=== PATIENT | female | born 1945 | race Caucasian/White ===

== ENCOUNTER 2017-01-21 16:00 | Emergency (ER) | payer MEDICARE ==
--- NOTE | ~2017-01-21 | CT52 ---
[facility] A Service of [facility] & [facility] RADIOLOGY TEXT RESULTS PATIENT: GABRIEL COHN LOCATION: [facility] : 49 UNIT #: [id number] AGE: [address]: Deshawn Celis MD SEX: F ORDER DR: [id number] [facility] [address] [place], [place] [address] [id number] E MR#: [id number] Acc #: [id number] NAME: GABRIEL COHN. : 1945 SEX: F STUDY DATE/TIME: 01/21/2017 15:03 UNIT: [facility] ROOM: STUDY DESCRIPTION: CT Cervical Spine Wo Cont Attending Physician: Deshawn Celis M.D. Ordering Physician: Manuel Hoskins M.D. Primary Care Physician: Rocky Mendiola M.D. MEDICAL IMAGING REPORT This report is preliminary unless electronic signature is present EXAM Cervical spine CT, 01/21/2017 HISTORY Patient fell yesterday. Neck and mid back pain with increased confusion today. TECHNIQUE Thin section axial imaging was obtained from the skull base to the upper thoracic spine and evaluated at bone and soft tissue windows with multiplanar reformats. This CT exam was performed with one or more of the following radiation dose reduction techniques: automatic exposure control, adjustment of mA and/or kV according to patient size, and iterative reconstruction. FINDINGS Alignment is satisfactory. There are mild degenerative changes at the upper 3 cervical discs with small osteophytes and mild disc space narrowing. At C5-6 there are large Schmorl nodes at the upper and lower endplates across the disc with an anterior osteophyte and sclerotic changes in the endplates with moderate disc space narrowing. There is also moderately severe disc narrowing at C6-7 and C7-T1. There is a prominent posterior disc osteophyte complex toward the left at C7-T1. This narrows the left side of the canal and the entrance to the left foramen. No fractures are seen and no destructive bone lesions are noted. No paraspinous masses are seen. IMPRESSION Multilevel degenerative disc disease as described above. Prominent posterior osteophyte to the left at C6-7 with moderate left-sided canal and foraminal narrowing. No acute bony abnormalities are seen. No STS. [facility] A Service of [facility] & [facility] RADIOLOGY TEXT RESULTS PATIENT: GABRIEL COHN [id number] [birth year] UNIT #: [id number] AGE: [address]: Deshawn Celis MD SEX: F ORDER DR: evidence of a fracture. Dictated by... Simon Vallejo M.D. THIS IS AN ELECTRONICALLY VERIFIED REPORT Simon Vallejo M.D. at 01/22/2017 3:41 PM KAVEH/jean TD: 01/22/2017 00:35 JOB #: [id number] MEDICAL IMAGING REPORT COPY
--- NOTE | ~2017-01-21 | CT71 ---
[facility] A Service [facility] RADIOLOGY TEXT RESULTS PATIENT: GABRIEL COHN LOCATION: [facility] : 47 UNIT #: [id number] AGE: [address]: Deshawn Celis MD SEX: F ORDER DR: [id number] [facility] [address] [place], [place] [address] [id number] E MR#: [id number] Acc #: [id number] NAME: GABRIEL COHN. : 1945 SEX: F STUDY DATE/TIME: 01/21/2017 15:03 UNIT: [facility] ROOM: STUDY DESCRIPTION: CT Head Wo Contrast Attending Physician: Deshawn Celis M.D. Ordering Physician: Manuel Hoskins M.D. Primary Care Physician: Rocky Mendiola M.D. MEDICAL IMAGING REPORT This report is preliminary unless electronic signature is present EXAM Head CT without contrast, 01/21/2017 HISTORY Patient fell in 01/20/2017 with neck pain and increasing confusion today. TECHNIQUE Axial images were obtained without contrast. CT dose reduction techniques were employed. This CT exam was performed with one or more of the following radiation dose reduction techniques: automatic exposure control, adjustment of mA and/or kV according to patient size, and iterative reconstruction. FINDINGS Generalized atrophy is seen and there are moderate chronic ischemic changes noted around the ventricles. There is no evidence of mass, hemorrhage or edema. No midline shift is seen. Extraaxial structures are unremarkable. Noted incidentally is mild mucosal thickening in the left maxillary sinus. 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 No acute findings. Dictated by... Simon Vallejo M.D. THIS IS AN ELECTRONICALLY VERIFIED REPORT Simon Vallejo M.D. at 01/22/2017 3:41 PM RLF/jean [facility] A Service [facility] RADIOLOGY TEXT RESULTS PATIENT: GABRIEL COHN LOCATION: [facility] : 49 UNIT #: [id number] AGE: [address]: Deshawn Celis MD SEX: F ORDER DR: TD: 01/22/2017 00:16 JOB #: [id number] MEDICAL IMAGING REPORT COPY
--- NOTE | ~2017-01-21 | EKG ---
PATIENT: GABRIEL COHN UNIT #: [id number] Ventricular Rate: 87 BPM Atrial Rate: 87 BPM P-R Interval: 198 ms QRS Duration: 66 ms Q-T Interval: 380 ms QTC Calculation(Bezet): 457 ms P [place]: 55 degrees Calculated R [place]: 43 degrees Calculated T [place]: 69 degrees Diagnosis Line: Normal sinus rhythm Diagnosis Line: Septal infarct , age undetermined Diagnosis Line: Abnormal ECG Diagnosis Line: When compared with ECG of 02-AUG-2016 14:53, Diagnosis Line: Premature ventricular complexes are no longer Diagnosis Line: Present Diagnosis Line: Septal infarct is now Present Diagnosis Line: Confirmed by NEMO COBOS MD ([id number]) on Diagnosis Line: 01/22/2017 11:24:43 AM INTERPRETING MD: CHANDRIKA BRANDT
--- NOTE | ~2017-01-21 | CR72 ---
[facility] A Service of [facility] & [facility] RADIOLOGY TEXT RESULTS PATIENT: GABRIEL COHN LOCATION: [facility] : 49 UNIT #: [id number] AGE: [address]: Deshawn Celis MD SEX: F ORDER DR: [id number] [facility] [address] [place], [place] [address] [id number] E MR#: [id number] Acc #: [id number] NAME: GABRIEL COHN. : 1945 SEX: F STUDY DATE/TIME: 01/21/2017 15:17 UNIT: [facility] ROOM: STUDY DESCRIPTION: CR Chest Single View Portable Attending Physician: Deshawn Celis M.D. Ordering Physician: Ed David Hoskins M.D. Primary Care Physician: Rocky Mendiola M.D. MEDICAL IMAGING REPORT This report is preliminary unless electronic signature is present EXAM Portable chest, 01/21/2017 INDICATION 71-year-old female with shortness of breath for 1 day. Compared with 08/02/2016. FINDINGS The lungs are well expanded and clear. Heart size normal. Visualized osseous structures are unremarkable. IMPRESSION No active disease. Dictated by... Alfredo Merlos M.D. THIS IS AN ELECTRONICALLY VERIFIED REPORT Alfredo Merlos M.D. at 01/23/2017 7:32 AM JIMMY/jean TD: 01/22/2017 03:42 JOB #: [id number] MEDICAL IMAGING REPORT COPY
[2017-01-21 15:45] LABS: BASOPHIL% 0.3 % (0-2.5); EOSINOPHIL# 0.1 X10e3 (0-0.7); EOSINOPHIL% 0.7 % (0.0-7.0); HEMATOCRIT 38.3 % (35.0-45.0); HEMOGLOBIN 12.6 gm/dL (12.0-16.0); LYMPHOCYTE# 0.9 X10e3 (1.0-3.5); LYMPHOCYTE% 7.5 % (17.0-45.0); MEAN CELL VOLUME 83.6 FL (83-96); MEAN CORPUSCULAR HEMOGLOBIN 27.6 PG (28-34); MEAN PLATELET VOLUME 7.8 FL (6.5-11.5); MONOCYTE# 0.8 X10e3 (0-1.0); MONOCYTE% 6.8 % (3.0-12.0); NEUTROPHIL% 84.7 % (40-75); PLATELET COUNT 200 X10e3 (140-420); RED BLOOD COUNT 4.57 X10e (3.90-5.30); RED CELL DISTRIBUTION WIDTH 13.8 % (11.0-15.5); WHITE BLOOD COUNT 11.9 X10e3 (4.0-10.5)
[2017-01-21 15:46] LABS: DIFF IND NO
[2017-01-21 16:00] LABS: INR 1.1; PARTIAL THROMBOPLASTIN TIME 27.5 SECONDS (23.5-31.3); PROTHROMBIN TIME (PATIENT) 12.1 SECONDS (9.6-11.5)
[~2017-01-21 16:00] MED LIST: ACETAMINOPHEN PO; ADVAIR 250-501 EAC1 IH; ALBUTEROL MININEB NEB; ALBUTEROL0.63 MG/3 INH; ALBUTEROL17 GM; ALBUTEROL17 GM INH; ALPRAZOLAM; ALPRAZOLAM PO; AMBIEN PO; ARICEPT PO; ARICEPT5 MG PO; ASPIRIN DR PO; ASPIRIN EC81 M1 PO; ASPIRIN PO; ASPIRIN81 M2 PO; COMBIVENT MININEB INH; COMBIVENT RESPIMAT INH; COMBIVENT U/D3 M2 INH; COUMADIN PO; COUMADIN1 MG PO; COUMADIN2.5 MG PO; COUMADIN5 MG PO; DITROPAN XL PO; DOCU SOFT100 M1 PO; DUONEB 2.5-0.5 M3 ML NEB; ENABLEX15 MG PO; FUROSEMIDE40 MG PO; HUMALOG KWIKPEN; HUMALOG100 U/M2; HYDROCODON-ACE1 EAC7 PO; KCL; KLOR-CON; LANTUS SOLOSTAR3 ML SUBQ; LANTUS100 U/ML SUBQ; LASIX; LEVAQUIN PO; LEVAQUIN750 MG PO; LISINOPRIL10 MG PO; LOPRESSOR PO; LORAZEPAM1 MG PO; LOVENOX SUBQ; LYRICA75 MG PO; METOPROLOL TAR25 MG PO; METOPROLOL TART25 MG PO; MICRONASE5 M1 PO; MICRONASE5 M2 PO; MILK OF MAGNESIA PO; MIRTAZAPINE7.5 MG PO; NEURONTIN PO; NICOTINE TRANSD21 MG EXT; OXYGEN; PANTOPRAZOLE SO40 MG; PLAVIX PO; PRAVACHOL PO; PREDNISONE; PREDNISONE PO; PREDNISONE10 MG PO; PROTONIX DR PO; PROVENTIL0.83 MG/ML IH; PULMICORT200 MCG/AE INH; SEROQUEL25 MG PO; SIMVASTATIN20 MG PO; TYLENOL ER PO; ULTRAM PO; VENTOLIN5 MG/ML IH; VESICARE PO; VIT B-12 PO; XANAX0.5 MG PO; ZITHROMAX; ZOCOR20 MG PO
[2017-01-21 16:07] LABS: ALBUMIN SERUM 3.3 g/dL (3.5-5.0); ALKALINE PHOSPHATASE 96 U/L (32-92); ALT (SGPT) 14 U/L (10-40); AST (SGOT) 18 U/L (10-42); BILIRUBIN, DIRECT 0.2 mg/dL (0.0-0.2); BILIRUBIN,INDIRECT 0.8 mg/dL (0.0-0.9); BLOOD UREA NITROGEN 20 mg/dL (9-23); BUN/CREATININE RATIO 22.22; CALCIUM SERUM 8.8 mg/dL (8.4-10.2); CARBON DIOXIDE 29 mmol/L (22-31); CHLORIDE 106 mmol/L (100-111); CREATININE SERUM 0.9 mg/dL (0.6-1.4); GLOM FILT RATE Estimated ABOVE60 mL/min (>60); GLUCOSE FASTING 91 mg/dL (70-110); PROTEIN TOTAL SERUM 6.7 g/dL (6.0-8.3); SODIUM 140 mmol/L (135-145)
[2017-01-21 16:11] LABS: URINE SOURCE CLEAN CATCH
[2017-01-21 16:18] LABS: URINE APPEARANCE CLEAR; URINE BILIRUBIN NEG (NEG); URINE BLOOD TRACE (NEG); URINE COLOR YELLOW; URINE GLUCOSE NEG (NEG); URINE KETONE NEG (NEG); URINE LEUKOCYTE ESTERASE TRACE (NEG); URINE NITRATE NEG (NEG); URINE PROTEIN NEG (NEG); URINE SPECIFIC GRAVITY 1.025 (1.003-1.035)
[2017-01-21 16:21] LABS: URINE BACTERIA AUWI NEG (NEGATIVE); URINE SQUAMOUS EPITHELIAL CELL MOD /[HPF]; UWBCS1 AUWI 0-2 (0-5)
[2017-01-21 16:22] LABS: CULTURE INDICATED? NO
== END 2017-01-21 18:35 | disposition home or self-care (01) ==
LOC: CED 16:00
PROVIDERS: Emergency Medicine
DX: R41.82 Altered mental status, unspecified (principal); R05 Cough; I10 Essential (primary) hypertension; F03.90 Unspecified dementia, unspecified severity, without behavioral disturbance, psychotic disturbance, mood disturbance, and anxiety; F41.9 Anxiety disorder, unspecified; K21.9 Gastro-esophageal reflux disease without esophagitis; Z88.5 Allergy status to narcotic agent; W18.09XA Striking against other object with subsequent fall, initial encounter; Y92.009 Unspecified place in unspecified non-institutional (private) residence as the place of occurrence of the external cause
CPT/HCPCS: 36415; 70450; 71010; 72125; 80048; 80076; 81003; 82947; 85025; 85610; 85730; 93005; 99284